=== PATIENT | female | born 1995 | race Asian ===

== ENCOUNTER 2022-10-20 18:55 | Emergency (ER) | payer MEDICAID, OTHER, SELFPAY ==
--- NOTE | ~2022-10-20 | CT_ITS ---
EXAMINATION: CT ABDOMEN AND PELVIS WITH CONTRAST CLINICAL INFORMATION: Bilateral lower quadrant pain COMPARISON: None available. TECHNIQUE: Multidetector volumetric images were obtained from the superior aspect of the liver through the pubic symphysis following administration 85 mL of Omnipaque 350 intravenous contrast. Sagittal and coronal reformatted images were obtained on the technologist's workstation. Oral contrast: No This CT examination was performed using dose optimization techniques as appropriate, variously including the following: *Automated exposure control *Adjustment of mA and/or kV according to patient size (this includes techniques or standardized protocols for targeted exams where dose is matched to indication/reason for exam; i.e. extremities or head) *Use of iterative reconstruction technique DLP: 330 mGy-cm FINDINGS: LUNG BASES: Patchy ground glass opacities towards the lung bases are suspicious for an infectious/inflammatory etiology. LIVER, GALLBLADDER, AND BILIARY TREE: The liver is normal in size, shape, and attenuation. No focal hepatic lesion or biliary ductal dilatation is present. The gallbladder is unremarkable with no evidence of radiopaque gallstones, gallbladder wall thickening, or obvious pericholecystic inflammatory changes. PANCREAS: Unremarkable. SPLEEN: Unremarkable. ADRENAL GLANDS: Unremarkable. KIDNEYS AND URETERS: Bilateral nephrograms are symmetric. No hydronephrosis or obstructing calculus identified. BLADDER: Unremarkable. GASTROINTESTINAL TRACT: No evidence of bowel obstruction or significant wall thickening. Appendix appears nondilated. No free air is seen. ABDOMINAL WALL: No significant hernia is appreciated. LYMPH NODES: Normal. VASCULAR: Unremarkable. PELVIC VISCERA: There is a prominent cystic structure along the midline superior to the bladder, favored to be of adnexal origin and measuring approximately 10.0 x 7.7 x 9.6 cm. Additional cyst in the left adnexa measures approximately 4.4 x 2.4 x 1.9 cm. Small volume of pelvic free fluid noted. OSSEOUS STRUCTURES: Unremarkable. CT/CT abdomen pelvis w IV con IMPRESSION: 1. Prominent cystic structure along the midline superior to the bladder, favored to be of adnexal origin and measuring up to 10 cm. Appearance raises concern for low-grade cystic neoplasm. Further workup with pre and postcontrast pelvic MRI and gynecology consult is recommended. Small volume of pelvic free fluid. 2. Patchy groundglass opacities towards the lung bases, suspicious for a mild infectious/inflammatory etiology.
--- NOTE | 2022-10-20 19:37 | ED.ABDPAIN ---
HPI - Abdominal Pain General Chief Complaint: Abdominal Pain Stated Complaint: lower abd pain Time Seen by Provider: 10/20/22 23:50 Source: patient Mode of arrival: ambulatory Limitations: no limitations History of Present Illness HPI narrative: Patient comes to the emergency room complaining of 2 days of dysuria and bilateral lower quadrant pain. Patient denies fever chills, no vaginal discharge. History of kidney stones. Patient denies flank pain. Patient complaining of mild nausea, no vomiting or diarrhea. Related Data Allergies Allergy/AdvReac Type Severity Reaction Status Date / Time No Known Allergies Allergy Verified 10/20/22 19:40 Review of Systems Review of Systems Constitutional : No Weight loss, No Fever, No Chills, No Night Sweats, No Fatigue, No Malaise ENT/Mouth : No Hearing loss, No Ear Pain, No Nasal Congestion, No Sinus Pain, No Hoarseness, No sore throat, No Rhinorrhea, No Swallowing Difficulty Eyes: No Eye Pain, No Swelling, No Redness, No Foreign Body, No Discharge, No Vision Changes Cardiovascular : No Chest Pain, No SOB, No Dyspnea on Exertion, No Orthopnea, No Edema, No Palpitations Respiratory : No Cough, No Sputum, No Wheezing, No Smoke Exposure, No Dyspnea Gastrointestinal : Complaining of Nausea, No Vomiting, No Diarrhea, No Constipation, complaining of bilateral lower quadrant pain, No Hematochezia, No Melena Genitourinary : no irregular bleeding, No Dysuria, No Urinary Frequency, No Hematuria, No Urinary Incontinence, No Urgency, No Flank Pain, No Urinary Flow Changes, No Hesitancy Musculoskeletal : No joint pain, No Myalgias, No Joint Swelling Skin : No Skin Lesions, No rash Neuro : No Weakness, No Numbness, No Paresthesias, No Loss of Consciousness, No Dizziness, No Headache Psych : No Anxiety/Panic, No Depression, No SI/HI/AH/VH, No Social Issues, Heme/Lymph: No Bruising, No Bleeding,No Lymphadenopathy Endocrine : No Polyuria, No Polydipsia, No Temperature Intolerance PMFSH Social History Social History Advance Directives: No Advance Directives Information Provided: No Physical Exam ED Vital Signs: Vital Signs - 24 hr 10/20/22 19:38 10/20/22 23:52 10/21/22 02:28 Temperature 97.0 F 98.8 F Pulse Rate 77 70 75 Respiratory Rate 16 17 17 Blood Pressure 116/75 114/72 105/75 Pulse Oximetry 100 99 99 Oxygen Delivery Method Room Air Room Air Room Air 10/21/22 04:32 10/21/22 06:00 10/21/22 08:06 Temperature 98.1 F 98.5 F 98.8 F Pulse Rate 71 79 93 Respiratory Rate 16 16 18 Blood Pressure 108/70 111/70 110/86 Pulse Oximetry 97 97 98 Oxygen Delivery Method Room Air Room Air Room Air 10/21/22 10:19 Temperature 98.9 F Pulse Rate 75 Respiratory Rate 15 Blood Pressure 119/72 Pulse Oximetry 99 Oxygen Delivery Method Room Air BMI result Body Mass Index 25.7 Const Other: Appearance: Alert. Oriented X3. No acute distress. Eyes: Pupils equal, round and reactive to light. ENT: Pharynx normal. Neck: Normal inspection. Neck supple. No lymph nodes noted. No crepitus CVS: Normal heart rate and rhythm. Pulses normal. Normal S1 and S2 Respiratory: No respiratory distress. Breath sounds normal. No Wheezing. No rales Abdomen: Soft, complaining of bilateral lower quadrant pain on palpation. No guarding, no rebound, No rigidity. No distention. Skin: Skin warm and dry. Normal skin color. Normal skin turgor. Extremities: No lower extremity edema. No Lacerations. No Rash Neuro: Oriented X 3. No motor deficit. No sensory deficit. Moving all extremities. No slurred speech. CN 2 through 12 grossly intact Psych: calm, cooperative, normal affect Course Course Course Narrative: This is a rapid medical exam. Deferred additional HPI, ROS ,PE to primary provider. 27 yo female here with complaints of lower abdominal pain, dysuria, nausea. No vomiting or diarrhea or back pain. LMP 7/1 No new sexual partners. No concerns for STDS. NO vaginal discharge, rashes or lesions. Will check UA, ur preg. VSS Reevaluation(s) Reevaluation #1: MRI is down, Dr. Garcia not going to see patient as an outpatient. Spoke to medication manager resident at [facility] will refer to one of the clinics Time: 11:11 Medical Decision Making Medical Decision Making MDM Narrative: -patient's urinalysis is negative for UTI and . -lab work pending in imaging pending. -patient declined pain medication at this time. -interpretation of CT scan of abdomen pelvis: Large cyst, unclear bladder versus ovarian? CT scan shows a large cystic lesion possibly coming from the bladder, differential includes low-grade neoplasm. -patient will need an MRI with and without contrast in the morning -I discussed the CT findings with the patient, unclear etiology of cyst. -after the MRI results become available, patient may need a consult to either urology or gynecology, depending the etiology of the cyst -sign-out given to Dr. Sharma Differential Diagnosis Differential Diagnoses: The differential diagnosis associated with the presentation includes (Ovarian cyst, bladder cystic structure, low-grade neoplasm) Admission/Observation Consideration of admission/observation: Escalation of care including admission/observation considered (Patient will remain under observation in the emergency room until tomorrow) Lab Data MDM Lab Attestation statement: I reviewed the patient's lab results. 10/21/22 00:23 10/21/22 00:23 Labs: Lab Results 10/20/22 10/20/22 10/21/22 Range/Units 23:10 23:10 00:23 WBC 5.5 (4.8-10.8) X10*3/uL RBC 4.22 (4.20-5.50) X10*6/uL Hgb 12.9 (12.0-16.0) g/dl Hct 37.8 (37.0-47.0) % MCV 89.6 (80.0-98.0) fL MCH 30.6 (27.0-33.0) pg MCHC 34.1 (31.0-35.0) g/dl RDW 11.3 (11.0-16.0) % Plt Count 250 (160-400) X10*3/uL MPV 9.8 (9.4-12.3) fL Immature Gran % (Auto) 0.0 (0.0-0.4) % Neut % (Auto) 37.6 L (45-73) % Lymph % (Auto) 53.0 H (20-40) % Dickey % (Auto) 6.9 (2-11) % Eos % (Auto) 2.0 (0-4) % Baso % (Auto) 0.5 (0-2) % Lymph # (Auto) 2.9 (1.2-4.9) X10*3/uL D[place]key # (Auto) 0.4 (0.1-1.2) X10*3/uL Eos # (Auto) 0.1 (0.0-0.4) X10*3/uL Baso # (Auto) 0.0 (0.0-0.2) X10*3/uL Abs Immat Gran (auto) 0.00 (0.00-0.03) X10*3/uL Absolute Neuts (auto) 2.1 (2.0-8.3) x10*3/uL Absolute Nucleated RBC 0.000 (0.0-0.012) X10*3/uL Nucleated RBC % (auto) 0.0 (0.0-0.2) /100WBC Sodium (135-145) mmol/L Potassium (3.3-5.1) mmol/L Chloride (96-108) mmol/L Carbon Dioxide (22-29) mmol/L Anion Gap (12-20) BUN (9-16) mg/dL Creatinine (0.5-1.4) mg/dL Estim Creat Clear Calc Estimated GFR Random Glucose (60-115) mg/dL Calcium (8.4-10.2) mg/dL Total Bilirubin (0.0-1.0) mg/dL Direct Bilirubin (0.0-0.5) mg/dL AST (5-31) U/L ALT (0-31) U/L Alkaline Phosphatase (39-117) U/L Total Protein (6.5-8.0) g/dL Albumin (3.5-5.0) g/dL Urine Color Yellow Urine Appearance Clear Urine pH 7.0 (5.0-9.0) Ur Specific [employer] 1.025 (1.005-1.025) Urine Protein Negative (Neg-Trace) mg/dL Urine Glucose (UA) Negative (Negative) mg/dL Urine Ketones Negative (Negative) mg/dL Urine Blood Negative (Negative) Urine Nitrite Negative (Negative) Ur Leukocyte Esterase Negative (Negative) Urine Test NEGATIVE (NEGATIVE) 10/21/22 Range/Units 00:23 WBC (4.8-10.8) X10*3/uL RBC (4.20-5.50) X10*6/uL Hgb (12.0-16.0) g/dl Hct (37.0-47.0) % MCV (80.0-98.0) fL MCH (27.0-33.0) pg MCHC (31.0-35.0) g/dl RDW (11.0-16.0) % Plt Count (160-400) X10*3/uL MPV (9.4-12.3) fL Immature Gran % (Auto) (0.0-0.4) % Neut % (Auto) (45-73) % Lymph % (Auto) (20-40) % Dickey % (Auto) (2-11) % Eos % (Auto) (0-4) % Baso % (Auto) (0-2) % Lymph # (Auto) (1.2-4.9) X10*3/uL [place] # (Auto) (0.1-1.2) X10*3/uL Eos # (Auto) (0.0-0.4) X10*3/uL Baso # (Auto) (0.0-0.2) X10*3/uL Abs Immat Gran (auto) (0.00-0.03) X10*3/uL Absolute Neuts (auto) (2.0-8.3) x10*3/uL Absolute Nucleated RBC (0.0-0.012) X10*3/uL Nucleated RBC % (auto) (0.0-0.2) /100WBC Sodium 138 (135-145) mmol/L Potassium 3.9 (3.3-5.1) mmol/L Chloride 106 (96-108) mmol/L Carbon Dioxide 24 (22-29) mmol/L Anion Gap 12 (12-20) BUN 11 (9-16) mg/dL Creatinine 0.68 (0.5-1.4) mg/dL Estim Creat Clear Calc 78.6 Estimated GFR > 60 Random Glucose 85 (60-115) mg/dL Calcium 9.8 (8.4-10.2) mg/dL Total Bilirubin 0.2 (0.0-1.0) mg/dL Direct Bilirubin < 0.2 (0.0-0.5) mg/dL AST 17 (5-31) U/L ALT 11 (0-31) U/L Alkaline Phosphatase 62 (39-117) U/L Total Protein 7.8 (6.5-8.0) g/dL Albumin 4.3 (3.5-5.0) g/dL Urine Color Urine Appearance Urine pH (5.0-9.0) Ur Specific [employer] [place] (1.005-1.025) Urine Protein (Neg-Trace) mg/dL Urine Glucose (UA) (Negative) mg/dL Urine Ketones (Negative) mg/dL Urine Blood (Negative) Urine Nitrite (Negative) Ur Leukocyte Esterase (Negative) Urine Test (NEGATIVE) Independent Interpretation I performed an independent interpretation of an: CT Scan Radiology Impression Discussion of test interpretation with radiology: I have reviewed the radiologist's reading. Radiologist Impression: FINDINGS: LUNG BASES: Patchy ground glass opacities towards the lung bases are suspicious for an infectious/inflammatory etiology.? LIVER, GALLBLADDER, AND BILIARY TREE: The liver is normal in size, shape, and attenuation. No focal hepatic lesion or biliary ductal dilatation is present. The gallbladder is unremarkable with no evidence of radiopaque gallstones, gallbladder wall thickening, or obvious pericholecystic inflammatory changes.? PANCREAS: Unremarkable.? SPLEEN: Unremarkable.? ADRENAL GLANDS: Unremarkable.? KIDNEYS AND URETERS: Bilateral nephrograms are symmetric. No hydronephrosis or obstructing calculus identified.? BLADDER: Unremarkable.? GASTROINTESTINAL TRACT: No evidence of bowel obstruction or significant wall thickening. Appendix appears nondilated. No free air is seen. ABDOMINAL WALL: No significant hernia is appreciated.? LYMPH NODES: Normal. VASCULAR: Unremarkable. PELVIC VISCERA: There is a prominent cystic structure along the midline superior to the bladder, favored to be of adnexal origin and measuring approximately 10.0 x 7.7 x 9.6 cm. Additional cyst in the left adnexa measures approximately 4.4 x 2.4 x 1.9 cm. Small volume of pelvic free fluid noted. OSSEOUS STRUCTURES: Unremarkable.? CT/CT abdomen pelvis w IV con IMPRESSION: 1.? Prominent cystic structure along the midline superior to the bladder, favored to be of adnexal origin and measuring up to 10 cm. Appearance raises concern for low-grade cystic neoplasm. Further workup with pre and postcontrast pelvic MRI and gynecology consult is recommended. Small volume of pelvic free fluid. 2.? Patchy groundglass opacities towards the lung bases, suspicious for a mild infectious/inflammatory etiology. ? Medications Administered Discontinued Medications Generic Name Dose Route Start Last Admin Trade Name Rehan PRN Reason Stop Dose Admin Iohexol 85 ml 10/21/22 01:17 10/21/22 01:19 Iohexol 350 Mg/Ml 100 Ml Infus..Btl IV 10/21/22 01:18 85 ml ONCE ONE Administration Discharge Plan Discharge Clinical Impression: Bladder mass, Pelvic mass, Ovarian cyst Patient Disposition: Home, Self-Care Instructions: Ovarian Cyst (ED) Additional Instructions: You have a 10cm ovarian cyst. Call [facility] or [facility] for follow up in 2 weeks Referrals: Physician,Jose J [Primary Care Provider] - (as above)
[2022-10-20 19:38] VITALS: BP 116/75; PULSE 77; RESP 16; TEMP 36.1; O2SAT 100; BMI 25.7
[2022-10-20 23:38] LABS: UPreg QC Valid YES; Urine Pregnancy NEGATIVE (NEGATIVE)
[2022-10-20 23:39] LABS: Appearance Urine Clear; Color Urine Yellow; Glucose Urine UA Negative (Negative); Leukocyte Esterase Urine Negative (Negative); Nitrite Urine Negative (Negative); Specific Gravity - Urine 1.025 (1.005-1.025); Urine Blood Negative (Negative); Urine Ketones Negative (Negative); Urine Protein Negative (Neg-Trace)
[2022-10-20 23:52] VITALS: BP 114/72; PULSE 70; RESP 17; TEMP 37.1; O2SAT 99
[2022-10-21 00:28] LABS: MANUAL DIFF FLAG NO
[2022-10-21 00:29] LABS: Basophils Percent Auto 0.5 % (0-2); Eosinophils Absolute Auto 0.1 X10*3/uL (0.0-0.4); Hematocrit 37.8 % (37.0-47.0); Hemoglobin 12.9 g/dl (12.0-16.0); Lymphocytes Absolute Auto 2.9 X10*3/uL (1.2-4.9); Mean Corpuscular HGB Conc 34.1 g/dl (31.0-35.0); Mean Corpuscular Hemoglobin 30.6 pg (27.0-33.0); Mean Corpuscular Volume 89.6 fL (80.0-98.0); Mean Platelet Volume 9.8 fL (9.4-12.3); Monocytes Absolute Auto 0.4 X10*3/uL (0.1-1.2); Monocytes Percent Auto 6.9 % (2-11); Neutrophils Absolute Auto 2.1 x10*3/uL (2.0-8.3); Neutrophils Percent Auto 37.6 % (45-73); Platelet Count 250 X10*3/uL (160-400); Red Blood Count 4.22 X10*6/uL (4.20-5.50); Red Cell Distribution Width 11.3 % (11.0-16.0); White Blood Count 5.5 X10*3/uL (4.8-10.8)
[2022-10-21 00:47] LABS: Alanine Aminotransferase 11 U/L (0-31); Albumin Level 4.3 g/dL (3.5-5.0); Alkaline Phosphatase 62 U/L (39-117); Anion Gap 12 (12-20); Aspartate Amino Transferase 17 U/L (5-31); Bilirubin Direct < 0.2 mg/dL (0.0-0.5); Bilirubin Total 0.2 mg/dL (0.0-1.0); Blood Urea Nitrogen 11 mg/dL (9-16); Calcium 9.8 mg/dL (8.4-10.2); Carbon Dioxide 24 mmol/L (22-29); Chloride 106 mmol/L (96-108); Creatinine Clr Calc Pharmacy 78.6; Estimated Glomerular Filt Rate > 60; Glucose Random 85 mg/dL (60-115); Potassium 3.9 mmol/L (3.3-5.1); Sodium 138 mmol/L (135-145); Total Protein 7.8 g/dL (6.5-8.0)
[2022-10-21] MEDS: iohexoL 350 MG/ML 100 ML INFUS..BTL 85 ML IV (01:19)
[2022-10-21 02:28] VITALS: BP 105/75; PULSE 75; RESP 17; O2SAT 99
[2022-10-21 04:32] VITALS: BP 108/70; PULSE 71; RESP 16; TEMP 36.7; O2SAT 97
--- NOTE | 2022-10-21 04:40 | PC.NURSE ---
MRI screening checklist completed at this time.
[2022-10-21 06:00] VITALS: BP 111/70; PULSE 79; RESP 16; TEMP 36.9; O2SAT 97
[2022-10-21 08:06] VITALS: BP 110/86; PULSE 93; RESP 18; TEMP 37.1; O2SAT 98
--- NOTE | 2022-10-21 08:45 | PC.NURSE ---
called MRI to see pt's place in line, Polly at MRI informed me that the MRI is down and has been since Wednesday. They are waiting on a part which will hopefully be in by sometime mid-day today, installed, and running by this afternoon. Roberto aware of delay in MRI. PT NPO in the meantime
--- NOTE | 2022-10-21 10:15 | PM.GYNCN ---
CALL CENTER DISPATCHER - CN: HPI Data of Consult Consult date: 10/21/22 Primary Care Provider: Unknown Physician Consult Narrative Narrative: I was consulted on Mindi White who is a 27 year old female presented to the emergency room complaining of 2 days of dysuria and bilateral lower quadrant pain.? Patient denies fever chills, no vaginal discharge.? History of kidney stones.? Patient denies flank pain.? Patient complaining of mild nausea, no vomiting or diarrhea. cc:: CC: OB [facility] Social History Social History Advance Directives: No Advance Directives Information Provided: No Meds Allergies Allergy/AdvReac Type Severity Reaction Status Date / Time No Known Allergies Allergy Verified 10/20/22 19:40 CALL CENTER DISPATCHER Physical Exam Vitals Vital signs: Temp Pulse Resp BP Pulse Ox O2 Del Method 98.8 F 93 18 110/86 98 Room Air 10/21/22 08:06 10/21/22 08:06 10/21/22 08:06 10/21/22 08:06 10/21/22 08:06 10/21/22 08:06 BMI result Body Mass Index 25.7 Additional Comments: Abdominal exam reported to be benign soft and nontender CALL CENTER DISPATCHER - Results Labs 10/21/22 00:23 10/21/22 00:23 Labs: Short CBC 10/21/22 Range/Units 00:23 WBC 5.5 (4.8-10.8) X10*3/uL Hgb 12.9 (12.0-16.0) g/dl Hct 37.8 (37.0-47.0) % Plt Count 250 (160-400) X10*3/uL BMP 10/21/22 00:23 Sodium 138 Potassium 3.9 Chloride 106 Carbon Dioxide 24 BUN 11 Creatinine 0.68 Calcium 9.8 Liver Function 10/21/22 Range/Units 00:23 Total Bilirubin 0.2 (0.0-1.0) mg/dL Direct Bilirubin < 0.2 (0.0-0.5) mg/dL AST 17 (5-31) U/L ALT 11 (0-31) U/L Alkaline Phosphatase 62 (39-117) U/L Albumin 4.3 (3.5-5.0) g/dL Urine 10/20/22 10/20/22 Range/Units 23:10 23:10 Urine Color Yellow Urine Appearance Clear Urine pH 7.0 (5.0-9.0) Ur Specific [place] 1.025 (1.005-1.025) Urine Protein Negative (Neg-Trace) mg/dL Urine Glucose (UA) Negative (Negative) mg/dL Urine Test NEGATIVE (NEGATIVE) Imaging CT scan - abdomen: Radiologist's impression: ITS Impressions Abdomen/Pelvis CT 10/21/22 01:20 IMPRESSION: 1. Prominent cystic structure along the midline superior to the bladder, favored to be of adnexal origin and measuring up to 10 cm. Appearance raises concern for low-grade cystic neoplasm. Further workup with pre and postcontrast pelvic MRI and gynecology consult is recommended. Small volume of pelvic free fluid. 2. Patchy groundglass opacities towards the lung bases, suspicious for a mild infectious/inflammatory etiology. Assessment and Plan (1) Pelvic mass: Status: Acute Discussed with Dr. Mejia the following: The differential diagnosis includes bladder mass versus adnexal mass, differential diagnosis of adnexal mass include malignant versus none malignant ovarian pathology. Recommend MRI as an outpatient and outpatient follow-up with urology service and OBGYN at a tertiary care hospital for possible laparoscopic ovarian cystectomy/oophorectomy where [facility] service is available on staff. Ovarian cyst rupture and/or torsion. Warning signs to be given to patient. Instructions to be given to patient to come back to emergency room in case of pelvic pain and or nausea or vomiting. I spent a total of 20 minutes reviewing the chart, communication with the emergency room provider and documenting in the medical record Time Spent With Patient Time: Total time managing care of this patient today ____ minutes.
[2022-10-21 10:19] VITALS: BP 119/72; PULSE 75; RESP 15; TEMP 37.2; O2SAT 99
[2022-10-21 11:38] VITALS: BP 107/82; PULSE 74; RESP 16; O2SAT 97
--- NOTE | 2022-10-21 14:25 | MHC.CM.ED ---
Received consult from Dr Mejia. Patient was in the ER 10/20 and d/c'd 10/21. Abd CT found a mass on her ovary. Dr Mejia tried to arrange a MRI at [facility]. However, the MRI was not worker at the time. Dr Mejia tried to arrange for patient to be seen at [facility]. Patient called Dr Mejia because [facility] is unable to accept her due to her insurance. T/W spoke with patient. Patient only has [employer] due to not being an [place] Citizen. She is in the process of trying to become an [place] citizen. She will not qualify for any other insurances from [employer] at this time. Dr Mejia made aware.
== END 2022-10-21 11:41 | disposition home or self-care (01) ==
PROVIDERS: Emergency Medicine; Nurse Practitioner Family; Emergency Provider Emergency Medicine
DX: R19.00 Intra-abdominal and pelvic swelling, mass and lump, unspecified site (principal); N83.202 Unspecified ovarian cyst, left side; N83.201 Unspecified ovarian cyst, right side; N32.9 Bladder disorder, unspecified; R30.0 Dysuria; R10.30 Lower abdominal pain, unspecified; Z79.899 Other long term (current) drug therapy
CPT/HCPCS: 36415; 74177; 80048; 80076; 81003; 81025; 85025; 99284; Q9967

== ENCOUNTER → 2022-10-20 23:38 | Outpatient (BNV) | payer SELFPAY | PROVIDERS: Emergency Provider Emergency Medicine; Visit Provider Obstetrics & Gynecology | DX: R19.00 Intra-abdominal and pelvic swelling, mass and lump, unspecified site (principal) | CPT/HCPCS: 99283 ==